=== PATIENT | female | born 1950 | race Caucasian/White ===

== ENCOUNTER 2018-04-25 13:31 | Emergency (ER) | payer MEDICARE, BC ==
--- NOTE | 2018-04-25 15:11 | UC ---
Lower Extremity/Ankle HPI - HPI Summary HPI Summary: chronic R knee pain , worsening over the past month. No accident/fall. Feels worsening R knee pain when lifting her R leg, walking too much. denies redness , fever., - History of Current Complaint Stated Complaint: RT KNEE COMPLAINT Time Seen by Provider: 04/25/18 14:49 Hx Obtained From: Patient ?: No Severity Initially: Mild Aggravating Factor(s): Standing, Ambulation Alleviating Factor(s): Rest, OTC Meds - Allergies/Home Medications Allergies/Adverse Reactions: Allergies Allergy/AdvReac Type Severity Reaction Status Date / Time penicillin V [From Pen-Vee K] Allergy Intermediate Rash Verified 04/25/18 15:16 PMH/Surg Hx/FS Hx/Imm Hx - Additional Past Medical History Additional PMH: obesity, hx of R meniscus tear Previously Healthy: Yes - Surgical History Surgical History: Yes Surgery Procedure, Year, and Place: CSECTION X2 [facility]. L4/5 SURGERY 1977, [facility]. UTERINE CYST REMOVED 1979. RT CARPAL TUNNEL 01/15 [facility]. Rt SHOULDER - REPAIR OF IMPINGEMENT. NASAL POLYPS REMOVED-1994 - Social History Alcohol Use: Daily Alcohol Amount: 1 GLASS WINE/DAY Substance Use Type: None Smoking Status (MU): Never Smoked Tobacco Have You Smoked in the Last Year: No Review of Systems All Other Systems Reviewed And Are Negative: Yes Constitutional: Positive: Negative Respiratory: Positive: Negative Cardiovascular: Positive: Negative Musculoskeletal: Positive: Arthralgia - R KNEE Neurological: Positive: Negative, Other - NO TINGLING, NUMBNESS Physical Exam Triage Information Reviewed: Yes Appearance: Well-Appearing Vital Signs Reviewed: Yes Musculoskeletal: Positive: Strength Intact - R LE, ROM Intact - R knee but not without pain, No Edema, Other: - R hip NL ROM, R ankle FROM. Skin Exam: Normal - no bruising at R knee Diagnostics - Radiology No standard instances Radiology Interpretation Completed By: Radiologist Summary of Radiographic Findings: IMPRESSION: OSTEOARTHRITIS. NO ACUTE OSSEOUS INJURY. IF SYMPTOMS PERSIST, RECOMMEND REPEAT IMAGING. Lower Extremity Course/Dx - Course Course Of Treatment: Reviewed previous imaging but no recent imaging of R knee. - Differential Dx/Diagnosis Differential Diagnosis/HQI/PQRI: Arthritis, Bursitis, Dislocation, Tendonitis, Tenosynovitis Provider Diagnoses: Bursitis R knee Discharge - Sign-Out/Discharge Documenting (check all that apply): Patient Departure All imaging exams completed and their final reports reviewed: Yes - Discharge Plan Condition: Good Disposition: HOME Prescriptions: Ibuprofen [Ibu] 600 mg PO TID #42 tablet Patient Education Materials: Osteoarthritis (ED) Referrals: Cheryl Richard MD [Primary Care Provider] - Additional Instructions: Please follow up w/ Dr. Garcias/Gadiel as they can order further imaging if needed. - Billing Disposition and Condition Condition: GOOD Disposition: Home
[2018-04-25 15:16] VITALS: BP 134/67
== END 2018-04-25 16:07 | disposition home or self-care (01) ==
LOC: UCCORT 13:31
DX: M70.51 Other bursitis of knee, right knee (principal); Y93.01 Activity, walking, marching and hiking; Z88.0 Allergy status to penicillin
CPT/HCPCS: 99212; G0463

== ENCOUNTER 2019-04-27 05:39 | Inpatient (IN) | payer MEDICARE, BC ==
[~2019-04-27 05:39] MED LIST: Buffered Lidocaine 1% SYRIN* 1 ML/SYRINGE INTRADERM ONE; Tranexamic Acid 1,000 MG in NS 0.9% 50 ML* (outpatient use) IV SCH
--- OUTSIDE RECORDS SUMMARY | 2019-04-27 05:42 | XMS REPORT | Continuity of Care Document ---
:1950 External Reference #:[id number] Author Name Ethan Cai M.D. (transmitted by agent of provider Lety Knutson) Address [address] [place] [address] [place] [address] Care Team Providers Name Role Phone Cheryl Richard MD - Family Care Team Information Clinical Nurse [phone] Medicine Problems Active Problems Provider Date Disorder of bursa of shoulder region Desean Dudley M.D. Onset: 08/23/2014 Disorder of shoulder Desean Brian Dudley M.D. Onset: 08/23/2014 Shoulder joint pain Desean Dudley M.D. Onset: 08/23/2014 Shoulder stiff Desean Dudley M.D. Onset: 08/23/2014 Carpal tunnel syndrome Desean Dudley M.D. Onset: 11/29/2014 Encounter for other orthopedic aftercare Ethan Cai M.D. Onset: 2015 Localized, primary osteoarthritis Ethan Cai M.D. Onset: 06/11/2018 Other tear of unspecified meniscus, current Ethan Cai M.D. Onset: 06/11 injury, right knee, subsequent encounter Social History Type Date Description Comments Sex Unknown ETOH Use Currently consumes alcohol Tobacco Use Start: Unknown Patient has never smoked Smoking Status Reviewed: 04/08/19 Patient has never smoked Allergies, Adverse Reactions, Alerts Active Allergies Reaction Severity Comments Date Penicillins 08/23/2014 Medications Active Medications SIG Qnty Indications Ordering Date Provider Citalopram Hydrobromide 1 by mouth Unknown 20mg Tablets every day Hydrochlorothiazide Unknown 25mg Phentermine 10mg Unknown Montelukast Sodium 1 by mouth Unknown 10mg Tablets every day Albuterol Sulfate HFA Unknown 108(90Base) mcg/Act Aerosol Medications Administered in Office Medication SIG Qnty Indications Ordering Provider Date Dexamethasone Sodium Phosphate, PANKAJ Kennedy 09/24/2018 1 MG Injection Depomedrol 40MG Ethan Cai M.D. 06/11/2018 Injection Depomedrol 40MG Ethan Cai M.D. 09/22/2015 Injection Depomedrol 80MG Ethan Cai M.D. 03/16/2015 Injection Immunizations Description No Information Available Vital Signs Date Vital Result Comment 04/08/2019 2:55pm Height 64.5 inches 5'4.50" Weight 200.00 lb Heart Rate 64 /min BP Systolic 120 mmHg BP Diastolic 76 mmHg Pain Level 4 BMI (Body Mass Index) 33.8 kg/m2 02/04/2019 9:40am Height 64.5 inches 5'4.50" Weight 210.00 lb Heart Rate 80 /min BP Systolic 128 mmHg BP Diastolic 78 mmHg Pain Level 4 BMI (Body Mass Index) 35.5 kg/m2 Results Description No Information Available Procedures Description No Information Available Medical Devices Description No Information Available Encounters Type Date Location Provider Dx Diagnosis Office Visit 02/04/2019 [facility]iane Campbell7Jenny [facility], [facility] Assessments Date Code Description Provider 04/08/2019 M17.11 Unilateral primary osteoarthritis, right knee Ethan Cai M.D. 02/04/2019 M17.11 Unilateral primary osteoarthritis, right knee Ethan Cai M.D. Plan of Treatment Future Appointment(s):04/27/2019 7:30 am - Ethan Cai M.D. at [facility] at [place]/08/2019 - Ethan Cai M.D.M17.11 Unilateral primary osteoarthritis, right kneeFollow up:Follow up: 1 month post-op Functional Status Description No Information Available Mental Status Description No Information Available Referrals Description No Information Available
--- OUTSIDE RECORDS SUMMARY | 2019-04-27 05:42 | XMS REPORT | Continuity of Care Document ---
:1950 External Reference #:[id number] Author Name Cheryl Richard M.D. Address [address] [facility] [place] [address] Care Team Providers Name Role Phone [facility] Care - Diagnostic Care Team Information Assembler Corncob Pipes [facility] - Care Team Information Assembler Corncob Pipes [phone] Gastroenterology Cheryl Richard M.D. - Family Medicine Care Team Information Assembler Corncob Pipes Unavailable Tia Rico MD - Care Team Information Assembler Corncob Pipes [phone] Gastroenterology Problems Active Problems Provider Date Asthma without status asthmaticus Jamal Saleh M.D. Onset: 03/16/2014 Depressive disorder Jamal Saleh M.D. Onset: 03/16/2014 Gastroesophageal reflux disease Jamal Saleh M.D. Onset: 03/16/2014 Disorder of shoulder Jamal Saleh M.D. Onset: 11/19/2014 Joint pain Cedric Cerrato M.D. Onset: 06/29/2015 Myalgia Cedric Cerrato M.D. Onset: 06/29/2015 Hyperlipidemia Cheryl Richard M.D. Onset: 09/04/2017 Obesity Cheryl Richard M.D. Onset: 09/17/2018 Mild recurrent major depression Cheryl Richard M.D. Onset: 09/17/2018 Mild persistent asthma Cheryl Richard M.D. Onset: 09/17/2018 Localized, primary osteoarthritis Cheryl Richard M.D. Onset: 09/17/2018 Social History Type Date Description Comments Sex Unknown ETOH Use Occasionally consumes alcohol Tobacco Use Start: Unknown Patient has never smoked Smoking Status Reviewed: 09/17/18 Patient has never smoked Exercise Exercises regularly walking and Type/Frequency gardening, cycling 20 min a day Seat Belt/Car Seat Always uses seat belt Allergies, Adverse Reactions, Alerts Active Allergies Reaction Severity Comments Date Pen-Vee-K Rash 09/08/2013 Naproxen 08/04/2014 Medications Active Medications SIG Qnty Indications Ordering Date Provider Phentermine HCL 1 tab by mouth 30caps E66.9 Cheryl Richard, 09/17/2018 15mg Capsules every morning M.D. Montelukast Sodium Take One 90tabs J45.998 Kulwinder SebastianNavya 05/17/2016 10mg Tablets Tablet By Leidy Hammond Mouth Every Day Albuterol Sulfate inhaled three 1box Cheryl Castleberry, 02/21/2015 (2.5mg/3ML) times a day as M.D. 0.083% Nebulizer needed sob/asthma j45. 40 Ventolin HFA 2 puffs every 3units J45.909 Cheryl Castleberry, 108(90Base) mcg/Act 4 hours as M.D. Aerosol needed Hydrochlorothiazide Take One 90tabs R60.9 [place] A. 25mg Tablets Tablet By Leidy Hammond Mouth Every Day Citalopram Hydrobromide Take One And 135tabs F32.9 [place] A. 20mg One-Half Leidy Hammond Tablets Tablets By Mouth Once Daily Ibuprofen 1 tab by mouth Unknown 600mg Tablets every 8 hours as needed pain. take with food Immunizations CPT Code Status Date Vaccine Lot # [id number] Given 02/20/2019 High-Dose, Influenza Virus Vacccine-fluzone 65 and older 54539 Given 02/25/2018 High-Dose, Influenza Virus Vacccine-fluzone 65 and older [id number] Given 08/21/2017 Pneumococcal Conjugate Vacc-13 [id number] 57436 Given 02/15/2017 Influenza Vac, [place] [address] Given 02/10/2016 Pneumococcal Immunization [id number] 83877 Given 02/10/2016 Influenza Vac, Quadrivalent, Slit Virus, Im [id number] 77968 Given 11/11/2014 Tdap Tetanus, W Pertussis [id number] 73696 Given 03/22/2014 Zostivax 94722 Given 03/04/2014 DO Not Use Split Influenza Virus Vaccine [id number] Vital Signs Date Vital Result Comment 03/31/2019 3:25pm BP Systolic 120 mmHg BP Diastolic 70 mmHg Heart Rate 72 /min Body Temperature 97.9 F Respiratory Rate 16 /min Height 64.5 inches 5'4.50" per patient Weight 212.00 lb BMI (Body Mass Index) 35.8 kg/m2 10/21/2018 10:55am BP Systolic 116 mmHg BP Diastolic 84 mmHg Heart Rate 80 /min Body Temperature 97.7 F Respiratory Rate 12 /min Height 64.5 inches 5'4.50" per patient Weight 225.00 lb BMI (Body Mass Index) 38.0 kg/m2 Results Test Date Facility Test Result H/L Range Note Laboratory test 12/11/2018 [facility] [place] Surgical SEE RESULT 1, 2 finding Pathology BELOW 1 [id number] 2 SEE RESULT BELOW Name: ROBINSON PETERSEN V : [address]: Tia Rico MD Acct: [id number] Unit: [id number] AGE: 68 Location: [facility] Re12/11/18 SEX: F Status: DEP REF SPEC: [id number] OLGA: 12/11/18-[address]: Tia Salinas MD REQ: [id number] RECD: 12/11/188386 STATUS: ASHOK STEINBERG DR: Cheryl Richard MD _ ORDERED: LEVEL 4/3 COMMENTS: [id number] FINAL DIAGNOSIS 1. Colon, cecum, biopsy: -- Tubular adenoma. -- No high grade dysplasia or malignancy. 2. Colon, ascending, biopsy: -- Tubular adenoma. -- No high grade dysplasia or malignancy. 3. Colon, rectum, biopsy: -- Hyperplastic polyp. CLINICAL HISTORY History of polyps POST-OPERATIVE DIAGNOSIS Colonoscopy to terminal ileum: baird-diverticulosis, (2) 3 to 4 mm cecal polyps -jumbo, (1) 3 to 4 mm ascending polyp-jumbo, (2) 3 mm rectal polyps-jumbo CONTINUED ON NEXT PAGE DEPARTMENT OF PATHOLOGY, [address] [place] [address] Mono Damon M.D. Director [facility] # [id number] RUN DATE: 12/12/18 [facility] LAB LIVE PAGE 2 Patient: ROBINSON PETERSEN Jamar [id number] (Continued) GROSS DESCRIPTION (Continued) GROSS DESCRIPTION 1. The specimen is received in formalin labeled, Biopsy Cecal Polyps, and consists of a 0.6 x 0.4 by up to 0.2 cm aggregate of mercado-pink irregular soft tissue fragments which is submitted entirely in one cassette. 2. The specimen is received in formalin labeled, Biopsy Ascending Colon Polyp, and consists of a 0.4 x 0.4 by up to 0.2 cm mercado-pink irregular to polypoid soft tissue fragment which is submitted entirely in one cassette. 3. The specimen is received in formalin labeled, Biopsy Rectal Polyps, and consists of a 0.3 x 0.2 by up to 0.2 cm mercado-pink polypoid soft tissue fragment which is submitted entirely in one cassette. Signed by and Reported on: Mono Damon MD 05/21 1448 END OF REPORT DEPARTMENT OF PATHOLOGY, [address] [place] [address] Mono Damon M.D. Director [facility] # [id number] Procedures Date Code Description Status 12/24/2018 [id number] Mammogram Completed 12/23/2018 [id number] Mammogram Completed 12/11/2018 [id number] Colonoscopy Completed 12/23/2017 [id number] Mammogram Completed 08/21/2017 [id number] Bone Mineral Density Test Completed 12/13/2016 [id number] Mammogram Completed 12/08/2015 [id number] Mammogram Completed 11/15/2014 [id number] Mammogram Completed 12/24/2013 [id number] Colonoscopy Completed Medical Devices Description No Information Available Encounters Type Date Location Provider Dx Diagnosis Office Visit 10/21/2018 [facility] Office Cheryl Richard, E66.9 Obesity, 11:00a M.D. unspecified E78.5 Hyperlipidemia, unspecified Assessments Date Code Description Provider 03/31/2019 Z01.818 Encounter for other preprocedural examination Cheryl Richard M.D. 03/31/2019 M17.11 Unilateral primary osteoarthritis, right knee Cheryl Richard M.D. 03/31/2019 E78.5 Hyperlipidemia, unspecified Cheryl Richard M.D. 03/31/2019 E66.9 Obesity, unspecified Cheryl Richard M.D. 03/31/2019 J45.30 Mild persistent asthma, uncomplicated Cheryl Richard M.D. 03/31/2019 F33.0 Major depressive disorder, recurrent, mild Cheryl Richard M.D. 10/21/2018 E66.9 Obesity, unspecified Cheryl Richard M.D. 10/21/2018 E78.5 Hyperlipidemia, unspecified Cheryl Richard M.D. Plan of Treatment Future Appointment(s):09/16/2019 1:00 pm - [facility]/31/2019 - Cheryl Richard M.D.Z01.818 Encounter for other preprocedural examinationComments:Discussed bowel regimen for opioid/post surgery constipation Cleared for surgery. Will fax note to ordering physician. HOLD NSAIDS and all supplements 7 days prior to surgery. Hold phentermine morning of dnvqwliU78.11 Unilateral primary osteoarthritis, right kneeComments: cleared for wzbaoseJ51.5 Hyperlipidemia, ljbjfwlzobiB02.9 Obesity, unspecifiedComments:Recommend a heart healthy diet such as the Mediterranean diet. Eat protein and vegetables first thencarbohydrates last. Get at least 150 minutes of moderate aerobic activity or 75 minutes of vigorous aerobic activity a week, or a combination of moderate and vigorous activity. General goal of 30 minutes of physical activity a day. continue rsygqxloqxoM03.30 Mild persistent asthma, uncomplicatedComments:stable on sokcujiE98.0 Major depressive disorder, recurrent, mildComments:stable on regimen; call if symptoms worsen discussed weaning in spring or switch if concern of parkinsons riskAllComments:Medication Management Patient Understands medications she's taking? Yes No Are there Barriers to Adherence? Yes No Has the patient been asked about herbal supplements and therapies, and OTC meds? Yes No Functional Status Description No Information Available Mental Status Description No Information Available Referrals Description No Information Available
[2019-04-27] MEDS ORDERED: Acetaminophen TAB* 325 MG PO ONE (06:00)
[2019-04-27] MEDS ORDERED: Lactated Ringers 1000 ML Bag* 1,000 ML IV SCH (06:00)
[2019-04-27] MEDS ORDERED: Gabapentin CAP(*) 300 MG PO ONE (06:00)
[2019-04-27] MEDS ORDERED: Famotidine IV* 10 MG/ML 2 ML (20 mg) IV ONE (06:00)
[2019-04-27] MEDS ORDERED: Clindamycin 900 MG/D5W BAG(*) 900 MG/50 ML BAG IVPB ONE (06:25)
[2019-04-27] MEDS ORDERED: Midazolam* 1 MG/ML 2 ML VIAL (2 MG) ONE (06:57)
[2019-04-27] MEDS ORDERED: fentaNYL* 50 MCG/ML 5 ML VIAL (250 MCG VIAL) ONE (06:57)
[2019-04-27] MEDS ORDERED: Lidocaine 2% PF * 5 ML VIAL ONE (06:58)
[2019-04-27] MEDS ORDERED: Propofol* 10 MG/ML 20 ML BTL ONE (06:58)
[2019-04-27] MEDS ORDERED: Rocuronium* 10 MG/ML VIAL ONE (07:01)
[2019-04-27] MEDS ORDERED: ceFAZolin 2 GM in NS PREMIX(*) 2 GM/100 ML BAG IVPB ONE (07:12)
[2019-04-27] MEDS ORDERED: ROPIVACAINE 5 MG/ML 30 ML BTL (0.5%) ONE (07:19)
[2019-04-27] MEDS ORDERED: Bupivacaine 0.5% W/EPI SDV* 10 ML VIAL INJ ONE (07:24)
[2019-04-27] MEDS ORDERED: HYDROmorphone INJ1* 1 MG/ML SYRINGE ONE (08:06)
[2019-04-27] MEDS ORDERED: Dexamethasone IV* 4 MG/ML 1 ML (4 MG) ONE (08:20)
[2019-04-27] MEDS ORDERED: oxyCODONE TAB* 5 MG TAB PO PRN ×2 (08:27→10:11)
[2019-04-27] MEDS ORDERED: diPHENhydraMINE IV* 50 MG/ML 1 ml VIAL (BENADRYL) IV PRN ×2 (08:27→10:11)
[2019-04-27] MEDS ORDERED: Naloxone* 0.4 MG/ML 1 ML VIAL IV PRN (08:27)
[2019-04-27] MEDS ORDERED: PROCHLORPERAZINE INJ 5 MG/ML 2 ML VIAL IV PRN (08:27)
[2019-04-27] MEDS ORDERED: HYDROmorphone INJ1* 1 MG/ML SYRINGE IV PRN (08:27)
[2019-04-27] MEDS ORDERED: celeCOXIB CAP* 200 MG PO ONE (08:29)
[2019-04-27] MEDS ORDERED: Phenylephrine 40 MCG/ML SYRINGE ONE (10:00)
[2019-04-27] MEDS ORDERED: EPHEDrine (Pressors)* 50 MG/ML VIAL ONE (10:00)
[2019-04-27] MEDS ORDERED: Ondansetron INJ* 2 MG/ML VIAL ONE (10:04)
[2019-04-27] MEDS ORDERED: Glycopyrrolate IV* 0.2 MG/ML 1 ML VIAL ONE (10:05)
[2019-04-27] MEDS ORDERED: diPHENhydraMINE PO* 25 MG PO PRN (10:11)
[2019-04-27] MEDS ORDERED: Magnesium Hydroxide LIQ* 30 ML UDC PO PRN (10:11)
[2019-04-27] MEDS ORDERED: Morphine INJ* 2 MG/ML 1 ML SYRINGE (TWO MG - NEW SYRINGE VERSION) IV PRN (10:11)
[2019-04-27] MEDS ORDERED: Ondansetron ODT TAB* 4 MG PO PRN (10:11)
[2019-04-27] MEDS ORDERED: Levalbuterol HFA INHALER* 1 PUFF MDI ONE (10:12)
[2019-04-27] MEDS ORDERED: Albuterol/Ipratropium NEB.SOL* Albuterol 2.5 MG/Ipratropium 0.5 MG 3 ML ONE (10:13)
[2019-04-27] MEDS ORDERED: Albuterol HFA INHALER* 8 gm MDI INH PRN ×2 (10:16→22:19)
[2019-04-27] MEDS ORDERED: Albuterol 2.5 MG/3 ML NEB.SOL* (0.083%) INH PRN (10:16)
[2019-04-27] MEDS ORDERED: Polyethylene Glycol 3350* 17 GM PACKET PO PRN (10:16)
[2019-04-27] MEDS ORDERED: Succinylcholine* 20 MG/ML 10 ML VIAL ONE (10:17)
[2019-04-27] MEDS ORDERED: celeCOXIB CAP* 200 MG ONE (11:28)
--- NOTE | 2019-04-27 12:35 | OP ---
DATE OF OPERATION: 04/27/19 - ROOM #346 DATE OF : 54 SURGEON: Ethan Cai MD MANAGER DRIVE: Janet Alvarado RPA ANESTHESIA: Regional and general. PRE-OP DIAGNOSIS: Osteoarthritis, right knee. POST-OP DIAGNOSIS: Osteoarthritis, right knee. OPERATIVE PROCEDURE: Right total knee arthroplasty with NAVIO guidance. ESTIMATED BLOOD LOSS: 25 cc. COMPLICATIONS: None. HARDWARE: [employer] #5 narrow femur, Laverne size II #4 tibial baseplate, 9 mm polyethylene spacer, 32 mm polyethylene patellar button. INDICATION: Ms. Burris is a 68-year-old female who has had troubles with her knees for some time. She had very specific pain about the right knee and initially was treated conservatively. By x-ray, most of her changes were in the patellofemoral joint. She initially responded well to conservative treatment but had represented 2 months ago complaining of more knee pain. Her x -rays had not shown significant arthritic change, so she underwent an MRI which did show significant wear in the medial femoral compartment. I discussed with her rather than a partial knee arthroplasty a total knee arthroplasty should work well to decrease her pain and improve her function. This way she would not have to worry about needing a revision from a partial to a total knee in the next several years. Other risks of surgery such as infection, scar formation, stiffness, DVT, pulmonary embolism, hardware failure, and continued pain were some of the risks discussed. She had been declared medically optimized and wished to proceed. DESCRIPTION OF PROCEDURE: The patient had an adductor canal block placed in the holding area and was brought in to the OR. General endotracheal anesthesia was established. A Damon catheter and tourniquet were placed. Total tourniquet time would be 85 minutes. Right knee was prepped and then draped. Esmarch was used to exsanguinate the leg and the tourniquet was raised. 10 cc of 0.5% Marcaine with epinephrine was injected along the incision line and a little bit right deep on the top side of the femur. A midline incision was made and was carried down through the subcutaneous fat. Small bleeders encountered were ligated using electrocautery. Extensor mechanism was exposed and a sharp parapatellar arthrotomy was made. A gush of clear yellowish joint fluid was encountered. Soft tissues were sharply elevated from the medial side of the tibia and the fat pad was sharply excised. Patella measured approximately 21 mm in thickness and a nice 10 mm cut was taken. Rongeur was also used to take down some of the lateral spurs. Patella was then easily subluxated laterally. The knee was flexed up. Nice exposure of the femur was obtained. Femoral push pin attempted to be placed but that was lost during the transfer so the tibial array was used as the femoral site. Tibial push pin was placed in. Pins were then drilled into the femur and then into tibia and the arrays were assembled. Knee was taken through range of motion and the arrays were properly visualized and the reference points were all scanned in including medial and lateral malleoli, center point on the femur and tibia, Turkey's line, and the pivot points on the arrays and tibial pin. Distal femur and proximal tibia were then scanned in. NAVIO selected a 5 narrow and a 4 tibia and these corresponded well to preoperative templating as I had also selected the 5 and 4. Parts were then adjusted until my extension gap was good and the flexion gap was significantly improved. There was still some looseness on the lateral side with some tightness on the medial side but with the adjustments these had improved significantly. Alignments were excepted and distal femur was then burred away and jose holes were then made using the NAVIO guidance. Femoral cutting guide was then placed and adjusted until the alignment looked good with the top hat and the cutting guide was impacted into place. Cutting guide was pinned into place and the anterior cut was taken and anterior cut was perfect as it was flushed with the anterior cortex of the femur. Posterior condyles and chamfer cuts were then also taken. Notch cut was finished using the reamer and then the box maker. On the tibial side, the jose holes were run using the NAVIO guidance and then the tibial cutting guide was placed and adjusted until it again was essentially perfectly aligned and then impacted into place. Two pins were placed and proximal tibial cut was taken. Spacer block was placed and her alignment appeared perfect. She was little loose in flexion, as this was planned, but considering her overall alignment was good and stability was good, I thought this would be more than acceptable. Tibia sized nicely to 4 and proximal tibia was drilled and then punched. Trial instrumentation was placed and she came out nicely into full extension, flexed well, and had good stability throughout. Outriggers were taken down and pins removed to allow for patellar tracking. Patellar tracking was also good. Patella was a little bit wide and I would have used a oblong implant if we had them, but these were unavailable. Edge was rongeured down as some of that had to have still been spur and a 32 was fitted. With the 32, patellar tracking was very good as well. Trial instrumentation was removed and the knee copiously pulse lavaged. Cement was being prepared. Behind each condyle 10 cc of 0.5% Marcaine with epi was injected and another 10 cc in the lateral gutter and then another 10 cc in the medial side and then the last 10 would be injected into the knee joint once the joint was closed. Tibia followed by femur and patella were all cemented into place. Excess cement was removed and the cement was allowed to harden. After the cement had hardened in approximately 15 min, knee was again copiously pulse lavaged and searched for excess cement. Few small pieces were found. She was trialed again with a 9 polyethylene and her motion and stability were excellent. The knee was again pulse lavaged and polyethylene was snapped into place. Knee was again pulse lavaged and parapatellar arthrotomy was repaired using interrupted #1 Vicryl sutures. Tourniquet was let down and no significant bleeding was encountered. The knee was again pulse lavage and subcutaneous tissues were reapproximated using 2-0 Vicryl. Skin was closed using imck. Sterile dressing and a Cryo/Cuff were applied in the OR. The patient was then extubated in the OR and was stable on transfer to the recovery room. [id number]/[facility] #: [id number] ELEANOR
[2019-04-27] MEDS: D5W 1/2 NS 1000 ML BAG* 1,000 ML IV SCH ×2 (12:47→22:49)
[2019-04-27] MEDS: Acetaminophen TAB* 325 MG PO SCH ×3 (14:28→21:51)
[2019-04-27] MEDS: Cyclobenzaprine TAB* 10 MG PO PRN ×2 (14:48→22:12)
--- NOTE | 2019-04-27 16:40 | PN ---
Progress Note - Progress Note Date of Service: 04/27/19 Note: Pt seen at bedside. She is comfortable and denies CP, SOB, dizziness, nausea. DF /PF intact, DP2+, sensation intact to light touch distally.
[2019-04-27] MEDS: ceFAZolin 1 GM ADVAN(*) 1 GM in NS 0.9% 50 ML* 50 ML IVPB SCH ×2 (16:45→23:57)
[2019-04-27] MEDS: traMADol TAB* 50 MG PO PRN ×2 (16:48→23:56)
[2019-04-27] MEDS ORDERED: Warfarin TAB(*) 10 MG PO ONE (17:00)
[2019-04-27] MEDS: Montelukast Sodium TAB* 10 MG PO SCH (17:35)
[2019-04-27] MEDS: Magnesium Hydroxide LIQ* 30 ML UDC PO SCH (20:17)
[2019-04-27] MEDS: Docusate CAP* 100 MG PO SCH (20:17)
[2019-04-27] MEDS: oxyCODONE TAB* 5 MG TAB PO PRN (20:17)
[2019-04-27] MEDS: Ondansetron INJ* 2 MG/ML VIAL IV PRN (22:09)
[2019-04-28] MEDS: oxyCODONE TAB* 5 MG TAB PO PRN ×3 (02:23→21:25)
[2019-04-28] MEDS ORDERED: Ketorolac INJ* 30 MG/ML 1 ML VIAL IV ONE (03:05)
[2019-04-28] MEDS ORDERED: Morphine INJ* 2 MG/ML 1 ML SYRINGE (TWO MG - NEW SYRINGE VERSION) IV ONE (03:05)
[2019-04-28] MEDS ORDERED: Morphine INJ* 2 MG/ML 1 ML SYRINGE (TWO MG - NEW SYRINGE VERSION) IV PRN (04:15)
[2019-04-28 05:34] LABS: Hematocrit 31 % (35-47); Hemoglobin 10.3 g/dL (12.0-16.0); Mean Platelet Volume 8.4 fL (7.4-10.4); Platelet Count 288 10^3/uL (150-450)
[2019-04-28 05:40] LABS: INR 1.2 (0.82-1.09)
[2019-04-28] MEDS: Acetaminophen TAB* 325 MG PO SCH ×3 (05:49→21:25)
[2019-04-28] MEDS: traMADol TAB* 50 MG PO PRN ×3 (05:49→17:54)
[2019-04-28 05:53] LABS: BUN/Creatinine Ratio 15.9 (8-20); EGFR African American 114.4 (>60); EGFR Non-African American 94.5 (>60)
[2019-04-28] MEDS: Citalopram TAB* 20 MG PO SCH (08:45)
[2019-04-28] MEDS: Vitamin THERAPEUTIC TAB PO SCH (08:45)
[2019-04-28] MEDS: Docusate CAP* 100 MG PO SCH ×2 (08:45→23:27)
[2019-04-28] MEDS: Heparin VIAL(*) 5000 UNITS/ML VIAL (FIVE THOUSAND) SUBCUT SCH ×3 (08:45→23:30)
[2019-04-28] MEDS: Magnesium Hydroxide LIQ* 30 ML UDC PO SCH ×2 (08:46→23:29)
[2019-04-28] MEDS: ceFAZolin 1 GM ADVAN(*) 1 GM in NS 0.9% 50 ML* 50 ML IVPB SCH (08:48)
[2019-04-28] MEDS: D5W 1/2 NS 1000 ML BAG* 1,000 ML IV SCH (08:57)
[2019-04-28] MEDS ORDERED: Ketorolac INJ* 30 MG/ML 1 ML VIAL IV PRN (09:00)
[2019-04-28] MEDS: Ondansetron INJ* 2 MG/ML VIAL IV PRN (13:00)
--- NOTE | 2019-04-28 13:04 | PN ---
Progress Note - Progress Note Date of Service: 04/28/19 SOAP: Subjective: []Patient seen and examined at bedside. Pain is well controlled. She denies CP, SOB, dizziness or nausea. Has not urinate since wick removal at 0600. Objective: []Gen: NAD, appears well RLE: Dressing CDI, thigh soft, DF/PF intact, DP2+, sensation intact to light touch distally Calves supple and nontender without erythema, edema or palpable cords Assessment: []POD 1 sp RTK Plan: []WBAT PT/OT heparin bridge to coumadin. coumaidn 6 mg today. Cont PO intake, IV fluids running. Bladder scan if no urination within the hour Pt desires to stay overnight, plan DC tomorrow Vital Signs Temp 97.8 F 04/28/19 11:17 Pulse 73 04/28/19 11:17 Resp 14 04/28/19 11:49 BP 103/54 04/28/19 11:17 Pulse Ox 94 04/28/19 11:17 Intake & Output 04/27/19 04/28/19 04/28/19 18:59 06:59 18:59 Intake Total 1210 2080 1182 Output Total 625 2950 Balance 585 -870 1182 Intake: IV Fluids 1000 980 972 D5W 1/2 NS 980 972 LR 1000 Oral 210 1100 210 Output: Urine 200 Wick 625 2450 Emesis 300 Laboratory Last Values Hgb 10.3 g/dL (12.0-16.0) L 04/28/19 05:17 Hct 31 % (35-47) L 04/28/19 05:17 Plt Count 288 10^3/uL (150-450) 04/28/19 05:17 MPV 8.4 fL (7.4-10.4) 04/28/19 05:17 INR (Anticoag Therapy) 1.20 (0.82-1.09) H 04/28/19 05:17 Sodium 137 mmol/L (135-145) 04/28/19 05:17 Potassium 4.0 mmol/L (3.5-5.0) 04/28/19 05:17 Chloride 102 mmol/L (101-111) 04/28/19 05:17 Carbon Dioxide 31 mmol/L (22-32) 04/28/19 05:17 Anion Gap 4 mmol/L (2-11) 04/28/19 05:17 BUN 10 mg/dL (6-24) 04/28/19 05:17 Creatinine 0.63 mg/dL (0.51-0.95) 04/28/19 05:17 Est GFR ( Amer) 114.4 (>60) 04/28/19 05:17 Est GFR (Non-Af Amer) 94.5 (>60) 04/28/19 05:17 BUN/Creatinine Ratio 15.9 (8-20) 04/28/19 05:17 Glucose 142 mg/dL (70-100) H 04/28/19 05:17 Calcium 9.0 mg/dL (8.6-10.3) 04/28/19 05:17
[2019-04-28] MEDS ORDERED: NS 0.9% 1000 ML** 1,000 ML IV ONE (13:53)
[2019-04-28] MEDS ORDERED: Warfarin TAB(*) 6 MG PO ONE (17:00)
[2019-04-28] MEDS: Montelukast Sodium TAB* 10 MG PO SCH (17:54)
[2019-04-29] MEDS: traMADol TAB* 50 MG PO PRN ×2 (02:26→09:02)
[2019-04-29 05:45] LABS: Hematocrit 29 % (35-47); Hemoglobin 9.5 g/dL (12.0-16.0); Mean Platelet Volume 8.6 fL (7.4-10.4); Platelet Count 245 10^3/uL (150-450)
[2019-04-29 05:49] LABS: INR 1.31 (0.82-1.09)
[2019-04-29] MEDS: Acetaminophen TAB* 325 MG PO SCH (06:05)
[2019-04-29] MEDS: Heparin VIAL(*) 5000 UNITS/ML VIAL (FIVE THOUSAND) SUBCUT SCH (06:07)
[2019-04-29 07:43] VITALS: BP 109/53
[2019-04-29] MEDS: Citalopram TAB* 20 MG PO SCH (09:01)
[2019-04-29] MEDS: Docusate CAP* 100 MG PO SCH (09:01)
[2019-04-29] MEDS: Vitamin THERAPEUTIC TAB PO SCH (09:02)
[2019-04-29] MEDS: Magnesium Hydroxide LIQ* 30 ML UDC PO SCH (09:10)
--- NOTE | 2019-04-29 09:19 | DS ---
Orthopedic Discharge Summary - Discharge Summary Date of Admission:04/27/19 Date of Discharge: 04/29/19 Date of Surgery: 04/27/19 Attending Orthopedic Provider: Dr Cai Pre-operative Diagnosis: Right knee osteoarthritis Operative Procedure: right total knee replacement Disposition of Patient: home with VNS Condition of Patient: stable History: ROBINSON PETERSEN is a 68 year old F with years of increasingly severe right knee pain. Patient has failed conservative management and has elected to undergo a right total knee replacement Hospital Course: ROBINSON was admitted to [facility] on 04/27/19. Patient underwent a right total knee replacement without complication followed by a brief recovery in PACU and transfer to the Short Stay Surgical Unit in stable condition. physical therapy also participated in this patients care. Post-op day 1: patient was alert and in no acute distress. Dressing was clean, dry and intact. Operative extremity dorsiflexion and plantarflexion intact, sensation intact to light touch distally, DP2+. Post-op day two: Pt felt well, denies CP, SOB, dizziness, nausea. dressing was changed, incision was clean, dry and intact. NVI distally. Patient was deemed to be medically and orthopedically stable for discharge. Physical therapy goals were met. Home Medications Medication Instructions Recorded Confirmed Type Citalopram TAB* [Celexa TAB*] 30 mg PO QAM 12/22/13 04/17/19 History Hydrochlorothiazide TAB* 25 mg PO QAM 12/22/13 04/27/19 History [Hydrodiuril TAB*] Albuterol 2.5MG/3ML (0.083%)* 2.5 mg INH Q6H PRN 12/03/18 04/27/19 History [Ventolin 2.5 MG/3 ML NEB.PADDY*] Montelukast Sodium TAB* [Singulair 10 mg PO QPM 12/03/18 04/27/19 History 10 MG TAB*] Phentermine HCl 10 mg PO QAM 12/03/18 04/17/19 History Albuterol Sulfate [Ventolin Hfa] 108 mcg INH DAILY PRN 12/11/18 04/27/19 History Docusate Sodium [Colace] 100 mg PO QAM 04/17/19 04/27/19 History Polyethylene Glycol 3350* 17 gm PO SEE INSTRUCTIONS PRN 04/17/19 04/27/19 History [Miralax*] Acetaminophen TAB* [Tylenol TAB*] 975 mg PO Q8HR tab 04/28/19 Rx Docusate CAP* [Colace Cap*] 100 mg PO BID PRN #90 cap 04/28/19 Rx Warfarin TAB(*) [Coumadin TAB(*)] 2 mg PO DAILY #90 tab 04/28/19 Rx traMADol TAB* [Ultram*] 50 mg PO Q6H PRN #56 tab MDD 8 04/28/19 Rx Aspirin TAB* [Aspirin 325 MG TAB*] 325 mg PO DAILY #30 tab 04/29/19 Rx Discharge Instructions following Orthopedic Surgery: Activity: * Weight Bearing as tolerated * Continue physical therapy and occupational therapy exercises as shown * Home PT Wound care: * OK to shower on post-op day 3, no bathing, swimming, or submerging wound. * Use gentle soap, pat dry. Cover with gauze, DARYA wrap or tape. * Visiting home nurse to do wound checks. Remove sutures and mick in 2 weeks Call Orthopedic office for: * Increased drainage * Redness * Increased pain * Fever Go to ER with shortness of breath or chest pain. Diet: * Regular diet * Increase fluids and fiber to prevent constipation. * Continue to use stool softeners, call office if no bowel motion within 48 hours. Medications See Home Medication List in your packet for medications that you should take after discharge. DVT Prophylaxis: Increases bleeding tendency Coumadin Dosing: * Please note that you have been given 2 mg tablets. * Visiting home nurse to draw blood work for INR on Saturday and . * You will be provided with dose instructions on Mondays and . * If you do not receive dosing instruction on dosing, please call our office right away. Please macy dosing instructions on your calendar as they are provided to you. * Dosin/27-05/03 take 4 mg daily. If visiting nurse is able to draw blood on 04/30 you will receive new dosing instruction on 04/30. If due to the holiday you do not have a blood draw until Saturday, follow instructions above. Call orthopedic office if you do not receive dosing instructions. Aspirin 325 mg daily until INR is between 2-3. ortho office to instruct when to stop Pain Control: Tramadol 50 mg take 1 tab for moderate pain and 2 tabs for severe pain every 6 hours as needed. Max 8 tabs per day. Hold for sedation, wean off as soon as pain allows Antibiotics are required prior to any dental work. FOLLOW UP: Follow up with [Trell] Within 4 weeks, call for appointment Please call our office with any questions or concerns ([phone]) RX sent to [facility] [place]
[2019-04-29] MEDS ORDERED: Bisacodyl SUPP* 10 MG SUPP PR PRN (10:11)
== END 2019-04-29 11:45 | disposition home health service (06) | DRG 470 ==
LOC: AA 05:39 → SSU 10:11
PROVIDERS: ADMIT Orthopaedic Surgery; ATTEND Orthopaedic Surgery
PROC: 8E0YXBZ Computer Assisted Procedure of Lower Extremity (ICD-10-PCS; 2019-04-27)
PROC: 0SRC0J9 Replacement of Right Knee Joint with Synthetic Substitute, Cemented, Open Approach (ICD-10-PCS; principal; 2019-04-27 07:30)
DX: M17.11 Unilateral primary osteoarthritis, right knee (principal); F33.0 Major depressive disorder, recurrent, mild; E66.9 Obesity, unspecified; J45.30 Mild persistent asthma, uncomplicated; E78.5 Hyperlipidemia, unspecified; K21.9 Gastro-esophageal reflux disease without esophagitis; Z79.899 Other long term (current) drug therapy; Z68.34 Body mass index [BMI] 34.0-34.9, adult
CPT/HCPCS: 36415; 80048; 85014; 85018; 85049; 85610; 88305; 88311; A9270-GY; C1776; G8978-GP-CJ; G8979-GP-CI; J0330; J0690; J1100; J1170; J1644; J1885; J2250; J2270; J2405; J2704; J2795; J3010

== ENCOUNTER 2020-05-16 05:58 | Observation (INO) ==
[2020-05-16] MEDS ORDERED: Buffered Lidocaine 1% SYRIN 1 ml INTRADERM ONE ×2 (06:00→06:55)
[2020-05-16] MEDS ORDERED: Lactated Ringers 1000 ml BAG 1,000 ML IV SCH (06:00)
[2020-05-16] MEDS ORDERED: Midazolam 2 mg/2 ml VIAL 1 mg/ml 2 ml VIAL (2 mg) ONE ×2 (06:42→07:18)
[2020-05-16] MEDS ORDERED: Dexamethasone IV 4 MG/ML VIAL 1 ml VIAL ONE (06:42)
[2020-05-16] MEDS ORDERED: ROPIVACAINE 5 MG/ML 30 ML BTL (0.5%) ONE (06:43)
[2020-05-16] MEDS ORDERED: ceFAZolin 2 GM PREMIX 2 GM/50 ML BAG ONE (06:54)
[2020-05-16] MEDS ORDERED: Bupivacaine 0.5% SDV PF 30ML VIAL ONE (07:09)
[2020-05-16] MEDS ORDERED: Vancomycin 1,000 MG VIAL ONE (07:09)
[2020-05-16] MEDS ORDERED: fentaNYL 100 mcg/2 ml 50 MCG/ML VIAL ONE (07:18)
[2020-05-16] MEDS ORDERED: Propofol 10 MG/ML 20 ML BTL ONE ×2 (07:18→08:10)
[2020-05-16] MEDS ORDERED: Phenylephrine 40 mcg/mL 10mL (400mcg) SYRINGE ONE ×2 (08:10→09:05)
[2020-05-16] MEDS ORDERED: EPHEDrine (Pressors) 50 MG/ML VIAL ONE (08:10)
[2020-05-16] MEDS ORDERED: fentaNYL 100 mcg/2 ml 50 MCG/ML VIAL IV PRN (09:29)
[2020-05-16] MEDS ORDERED: Naloxone 0.4 mg VIAL 0.4 mg/ml 1 ml VIAL IV PRN (09:29)
[2020-05-16] MEDS ORDERED: DiMENhydriNATE IV 50 mg/ml 1 ml VIAL IV PUSH PRN (09:29)
[2020-05-16] MEDS ORDERED: Lactulose 30 ml UDC PO PRN (10:08)
[2020-05-16] MEDS ORDERED: Magnesium Hydroxide LIQ 30 ML UDC PO PRN (10:08)
[2020-05-16] MEDS ORDERED: diPHENhydraMINE IV 50 MG/ML 1 ml VIAL (BENADRYL) IV PRN (10:08)
[2020-05-16] MEDS ORDERED: Ondansetron 4 mg VIAL 2 MG/ML 2 ml VIAL IV PRN (10:08)
[2020-05-16] MEDS ORDERED: Ondansetron ODT 4 mg TAB 4 MG TAB PO PRN (10:08)
[2020-05-16] MEDS ORDERED: diPHENhydraMINE 25 mg TAB PO PRN (10:08)
[2020-05-16] MEDS ORDERED: Albuterol HFA INHALER 8 gm MDI INH PRN (12:27)
[2020-05-16] MEDS: D5W 1/2 NS 1000 ml BAG 1,000 ML IV SCH (13:30)
[2020-05-16] MEDS: ceFAZolin 1 GM ADVAN 1 GM in NS 0.9% 50 ML 50 ML IVPB SCH (16:44)
[2020-05-16] MEDS: Magnesium Hydroxide LIQ 30 ML UDC PO SCH (20:06)
[2020-05-17] MEDS: D5W 1/2 NS 1000 ml BAG 1,000 ML IV SCH (00:29)
[2020-05-17] MEDS: ceFAZolin 1 GM ADVAN 1 GM in NS 0.9% 50 ML 50 ML IVPB SCH ×2 (00:30→07:50)
[2020-05-17 06:19] LABS: Hematocrit 27 % (35-47); Hemoglobin 9.4 g/dL (12.0-16.0); Mean Platelet Volume 8.2 fL (7.4-10.4); Platelet Count 247 10^3/uL (150-450)
[2020-05-17 06:30] LABS: BUN/Creatinine Ratio 17.5 (8-20); EGFR African American 127.6 (>60); EGFR Non-African American 105.5 (>60); Potassium 3.8 mmol/L (3.5-5.0)
[2020-05-17] MEDS: Magnesium Hydroxide LIQ 30 ML UDC PO SCH (08:48)
[2020-05-17] MEDS ORDERED: Vitamin THERAPEUTIC TAB PO SCH (09:00)
[2020-05-17] MEDS ORDERED: PHENTERMINE PO SCH (09:00)
[2020-05-17 11:26] VITALS: BP 107/52
== END 2020-05-17 13:05 | disposition home or self-care (01) ==
LOC: OR 05:58 → SSU 05:58
PROVIDERS: ADMIT Orthopaedic Surgery; ATTEND Orthopaedic Surgery